=== PATIENT | male | born 1975 | race Caucasian/White ===

== ENCOUNTER 2022-09-09 12:36 | Outpatient (AMB) | payer OTHER, SELFPAY ==
--- NOTE | 2022-09-09 13:31 | MHC.PC.OV ---
Vital Signs 09/09/22 13:33 Height 6 ft Weight 246 lb BMI 33.4 BP 152/100 H Blood Pressure Location Lt brachial Position Sitting Pulse 105 H Pulse Source Pulse Oximeter Pulse Oximetry (%) 96 Oxygen Delivery Method Room Air Intake Visit Reasons: BP/Medications Intake Note: Pt is here today to f/u b/p medication (pt ran out of medication x2wks ago) Allergies penicillin V Allergy (Unknown, Verified 09/09/22 13:51) unknown Sulfa (Sulfonamide Antibiotics) Allergy (Unknown, Verified 09/09/22 13:51) unknown Medication List - Last Reconciled 09/09/22 by Rebecca Joya MD amlodipine 10 mg PO DAILY 90 days blood pressure monitor (Blood Pressure Kit) Check blood pressure once a day as directed lisinopril 10 mg PO DAILY Tobacco use date assessed: 09/09/22 Dental Screening Dental Screen Date: 09/09/22 Did you have a dental visit in the last 12 months?: No Was dental information given to patient?: Patient has dentist HPI BP/Medications HPI Details 39-year-old male with hypertension previously on amlodipine and lisinopril but ran out of his medications , here today needing a prescription refill. He has been treated for alcohol dependence, currently sober now for the approximately 6 days now. Currently resides in a alf near her [place]. He also has history of fracture in his right femoral neck sustained in October 2019, treated ortho in [place]. He is currently going to be leaving the and would like a referral to Orthopedics as he needspatient needs to have range of motion measurements of right leg and right shoulder, needed for medical group home- med board. [facility] Medical History (Updated 09/09/22 @ 14:12 by Rebecca Joya MD) Essential hypertension H/O fracture of femur History of alcohol abuse Obesity (BMI 30.0-34.9) Shoulder pain, right Surgical History (Updated 01/22/20 @ 12:28 by [place] Vidales, [employer]IST) History of skin graft Family History (Updated 09/09/22 @ 13:41 by Radha Elder CMA) Father Aneurysm Mother Chronic back pain Sister No problems noted. Sister No problems noted. Son No problems noted. Son No problems noted. Social History (Updated 01/23/20 @ 10:38 by Radha Elder CMA) Housing: House Alcohol intake: current Patient Tobacco Use Status: Former Tobacco user e-Cigarette/Vaping Use: Former Use service: No Current occupational status: employed Cognitive needs: No Hearing needs: No Vision needs: Yes Questionnaire PHQ-9 Over the last 2 weeks, how often have you been bothered by any of the following problems? 1. Little interest or pleasure in doing things: not at all 2. Feeling down, depressed, or hopeless: not at all 3. Trouble falling or staying asleep, or sleeping too much: not at all 4. Feeling tired or having little energy: not at all 5. Poor appetite or overeating: not at all 6. Feeling bad about yourself - or that you are a failure or have let yourself or your family down: not at all 7. Trouble concentrating on things, such as reading the newspaper or watching television: not at all 8. Moving or speaking so slowly that other people could have noticed. Or the opposite - being so fidgety or restless that you have been moving around a lot more than usual: not at all 9. Thoughts that you would be better off or of hurting yourself in some way: not at all Total score: 0 Depression Screening Interpretation: Negative 13103 - PHQ-9 Billing: Yes Source: Developed by Drs. Lake Thomas, Claudette Allen, Jamal Graf and colleagues, with an educational charleen from [employer]. Thrive Questionnaire Date Thrive assessed: 09/09/22 I am a: Patient What is your living situation today?: I have a steady place to live Within the past 12 months, did the food you bought not last and you didn't have the money to get more?: Never true Within the past 12 months, did you worry whether your food would run out before you got money to buy more?: Never true Do you have trouble paying for medicines?: No Do you have trouble getting transportation to medical appointments?: No Do you have trouble paying your heating and electricity bill?: No Do you have trouble taking care of your child, family member or friend?: No Do you have trouble with day-to-day activities such as bathing, preparing meals, shopping, managing finances, etc.?: No Are you currently unemployed and looking for a job?: No Are you interested in more education?: No AUDIT C Alcohol Use Questionnaire (AUDIT-C) 1. How often do you have a drink containing alcohol?: Never (Sober now for the last 66 days, history of alcohol abuse, used to drink 15 drinks a day mixture of whiskey and beer) Total Score: 0 Score Reviewed/Action Taken: Yes (Currently resides in a alf,, attends AA) PASQUALE-7 AMB Questionnaire PASQUALE-7 Date PASQUALE - 7 assessed: 09/09/22 Feeling nervous, anxious, or on edge: 0 = Not at all Not being able to stop or control worryin = Not at all Worrying too much about different things: 0 = Not at all Trouble relaxin = Not at all Being so restless that it is hard to sit still: 0 = Not at all Becoming easily annoyed or irritable: 0 = Not at all Feeling afraid as if something awful might happen: 0 = Not at all Total PASQUALE-7 score (0-4 normal; 5-9 mild; 10-14 moderate; 15-21 severe): 0 Source: Developed by Drs. Lake Thomas, Claudette Allen, Jamal Graf and colleagues, with an educational charleen from [employer]. PASQUALE-7 Assessment Billing PASQUALE-7 Assessment Tool: PASQUALE-7 Assessment 34524 Review of Systems Const Denies body aches, Denies fatigue, Denies fever(s), Denies headache(s), Denies weakness and Reports weight gain Eyes Denies change in vision, Denies eye discharge and Denies itchy eyes ENT Denies dizziness, Denies headache(s), Denies nasal congestion, Denies nasal discharge and Denies sore throat Card Denies chest pain, Denies lightheadedness, Denies palpitations and Denies dyspnea Resp Denies chest congestion, Denies cough, Denies dyspnea and Denies wheezing GI Denies abdominal pain, Denies change in bowel habits and Denies heartburn Denies dysuria, Denies urinary frequency and Denies urinary urgency Musc Denies back pain, Denies myalgias, Denies joint swelling, Denies limited range of motion, Denies muscle weakness and Denies numbness Skin/Breast Denies lesions and Denies rash Neuro Denies dizziness, Denies headache(s), Denies numbness and Denies weakness Psych Denies abnormal sleep pattern, Denies anxiety and Denies depression Endo Denies fatigue, Denies polydipsia, Denies polyuria and Denies palpitations Johnathan/Lymph Denies easy bruising Aller/Immun Denies itchy eyes, Denies seasonal rhinorrhea and Denies wheezing Physical exam (Primary Care) Vital Signs: Last Vital Signs Pulse 105 H 09/09/22 13:33 BP 152/100 H 09/09/22 13:33 Pulse Ox 96 09/09/22 13:33 Oxygen Delivery Method Room Air 09/09/22 13:33 BMI result Body Mass Index 33.4 BMI Assessment/Plan discussion: High BMI High, discussed plan: lifestyle, weight reduction, dietary, physical activity and alcohol moderation (Continue abstinence from alcohol) Tobacco/Smoking Status: Tobacco use Status Tobacco use date assessed 09/09/22 09/09/22 13:41 Patient Tobacco Use Status Former Tobacco user 09/09/22 13:41 e-Cigarette/Vaping Use Former Use 09/09/22 13:41 PHQ-9: PHQ-9 Score PHQ-9: Total score 0 09/09/22 14:41 Depression Screening Interpretation: Negative Thrive Assessment: Date of Thrive Assessment Date Thrive assessed 09/09/22 09/09/22 14:39 Const General: cooperative, comfortable and no acute distress Nutritional Appearance: obese Orientation/consciousness: patient oriented x3 HENMT Head: Yes normocephalic and Yes atraumatic Ears: hearing grossly normal bilaterally, external ears normal, TM's normal bilaterally and EAC's normal General nose exam: Normal external nose present and No nasal discharge present Face and sinus: Yes face symmetric Mouth: Normal oral and palatal mucosa present, tongue normal, oropharynx normal and moist mucous membranes Eyes General: appearance normal, both eyes and all related structures Alignment and Position: alignment normal Periorbital: periorbital findings normal Eyelids: Yes eyelids normal Conjunctivae: conjunctivae normal Sclerae: sclerae normal Pupils: Equal, round and reactive pupils present EOM: EOMs intact bilaterally Direct Ophthalmoscopy: normal light reflex Neck Neck: Yes full ROM, Yes no lymphadenopathy and Yes supple Thyroid: Thyroid normal Resp Effort & Inspection: normal respiratory effort and able to speak in complete sentences Auscultation: clear to auscultation bilaterally Cardio Palpation: normal PMI Rate: regular rate Rhythm: regular rhythm Heart sounds: S1 normal heart sound present and S2 normal heart sound present GI Inspection: Yes obesity Palpation (GI): Soft to palpation, nontender, no guarding and no masses Auscultation: normal bowel sounds General: Yes no CVA tenderness Back/Spine/Pelvis Back: no CVA tenderness and No back tenderness Cervical Spine: cervical ROM normal Thoracic/Lumbar Spine: straight leg raise negative bilaterally Skin General skin exam: no rashes or lesions noted Neuro General: patient oriented x3, moves all extremities, Normal light touch and pain sensation, no focal motor deficits and CN's II-XI intact bilaterally Cranial nerves: Yes CN's II-XII intact bilaterally and Yes Equal, round and reactive pupils present Cognition (Neuro): normal cognition Gait exam (Neuro): Normal gait present Psych Appearance: grossly normal and well kempt Mental Status: mental status grossly normal Speech and movement: Normal speech and movement present Affect: normal affect Attitude: cooperative Thought process: Normal thought process present Thought content: Normal thought content present Assessment and Plan Assessment & Plan (1) Essential hypertension: Code(s): I10 - Essential (primary) hypertension Plan: Blood pressure at goal of less than 130/80. Refill prescription for lisinopril and amlodipine. Reinforced importance of following a low sodium diet, getting regular exercise, and lowering stress levels. (2) Obesity (BMI 30.0-34.9): Code(s): E66.9 - Obesity, unspecified Plan: Discussed need to increase activity and wt reduction. Recommended focusing on improving your health instead of dieting. : Eat Mediterranean diet, limit foods high in fat, sugar, and calories, eat slowly, pay attention to portion sizes, plan your meals ahead of time, start regular physical activity 150 minutes of moderate intensity exercise or 90 minutes/week of vigorous exercise and increase water intake. (3) History of alcohol abuse: Comment: Currently in a alf in [place] Code(s): F10.11 - Alcohol abuse, in remission Plan: Currently in AA and residing in a alf, sober now for at least 2 months (4) H/O fracture of femur: Comment: mildly Rt vertical femoral neck fx 10/2019 Code(s): Z87.81 - Personal history of (healed) traumatic fracture Plan: Followed by Orthopedics (5) Shoulder pain, right: Code(s): M25.511 - Pain in right shoulder Plan: Seen by Orthopedics, referral ordered for follow-up Orders: Orders Lipid Panel 09/09/22 I10 - Essential (primary) hypertension Comprehensive Met. Panel 09/09/22 E66.9 - Obesity, unspecified, F10.11 - Alcohol abuse, in remission, I10 - Essential (primary) hypertension Referrals Orthopedics Referral M25.511 - Pain in right shoulder, Z87.81 - Personal history of (healed) traumatic fracture Medications: Refilled amlodipine 10 mg PO DAILY 90 days 90 tabs 1RF I10 - Essential (primary) hypertension lisinopril 10 mg PO DAILY 90 tabs 1RF I10 - Essential (primary) hypertension Coding Level of Care Code Est Pt Level 4 (62050) Diagnoses Essential hypertension I10 Obesity (BMI 30.0-34.9) E66.9 History of alcohol abuse F10.11 H/O fracture of femur Z87.81 Shoulder pain, right M25.511 Additional Codes PASQUALE-7 Assessment Billing - PASQUALE-7 Assessment Tool: PASQUALE-7 Assessment 46859 ([id number])
[2022-09-09 13:33] VITALS: BP 152/100; PULSE 105; O2SAT 96; BMI 33.4
== END 2022-09-09 14:19 | disposition home or self-care (01) ==
PROVIDERS: PCP Internal Medicine; Visit Provider Internal Medicine
DX: I10 Essential (primary) hypertension (principal); Z87.81 Personal history of (healed) traumatic fracture; Z68.33 Body mass index [BMI] 33.0-33.9, adult; E66.9 Obesity, unspecified; F10.11 Alcohol abuse, in remission; M25.511 Pain in right shoulder
CPT/HCPCS: 99214

== ENCOUNTER 2022-09-09 14:19 | Outpatient (REF) | payer OTHER, SELFPAY ==
[2022-09-09 17:49] LABS: Alanine Aminotransferase 21 U/L (0-40); Albumin Level 4.4 g/dL (3.5-5.0); Alkaline Phosphatase 75 U/L (39-117); Anion Gap 15 (12-20); Aspartate Amino Transferase 25 U/L (5-37); Bilirubin Total 1.2 mg/dL (0.0-1.0); Blood Urea Nitrogen 12 mg/dL (9-16); Carbon Dioxide 19 mmol/L (22-29); Chloride 109 mmol/L (96-108); Cholesterol 193 mg/dL; Estimated Glomerular Filt Rate > 60; Glucose Random 99 mg/dL (60-115); HDL Cholesterol 54 mg/dL; LDL Cholesterol Calculated 114 mg/dl; Potassium 4.1 mmol/L (3.3-5.1); Sodium 139 mmol/L (135-145); Total Protein 7.6 g/dL (6.5-8.0); Triglycerides 128 mg/dL
== END 2022-09-09 14:20 | disposition home or self-care (01) ==
LOC: HO.HMGCLDS 14:19
PROVIDERS: PCP Internal Medicine; Visit Provider Internal Medicine
DX: I10 Essential (primary) hypertension (principal); E66.9 Obesity, unspecified; F10.11 Alcohol abuse, in remission
CPT/HCPCS: 36415; 80053; 80061

== ENCOUNTER 2024-05-11 13:28 | Outpatient (AMB) | payer OTHER, SELFPAY ==
--- NOTE | 2024-05-11 14:39 | MHC.PC.OV ---
Vital Signs 05/11/24 14:43 Height 6 ft Weight 264 lb BMI 35.8 BP 136/88 Blood Pressure Location Rt brachial Position Sitting Respiration 16 Pulse 83 Pulse Source Pulse Oximeter Temp 98.2 F Temp Source Oral Pulse Oximetry (%) 97 Oxygen Delivery Method Room Air Intake Visit Reasons: Annual PE/OVERDUE/needs refill~BP meds/DO NOT CX Intake Note: Pt is here today for his PE Allergies penicillin V Allergy (Unknown, Verified 05/11/24 15:12) unknown Sulfa (Sulfonamide Antibiotics) Allergy (Unknown, Verified 05/11/24 15:12) unknown Medication List - Last Reconciled 05/11/24 by Rebecca Joya MD amlodipine 10 mg PO DAILY 90 days blood pressure monitor (Blood Pressure Kit) Check blood pressure once a day as directed lisinopril 10 mg PO DAILY Tobacco use date assessed: 05/11/24 Dental Screening Dental Screen Date: 05/11/24 HPI Annual PE/OVERDUE/needs refill~BP meds/DO NOT CX HPI Details 48-year-old male with history of hypertension, obesity, history of alcoholism, now sober for 2 years , here today for physical exam. He has been compliant with taking his medications , compliant with healthy eating habits. He walks daily for exercise. His blood pressure has been stable and well controlled on present medication, but there are times that it still goes up to 130/100. He also has been having hard time losing weight despite exercising and following a healthy diet, would like to try losing weight with either Ozempic or Wegovy. He is overdue for colon cancer screening. He also has been having difficulty with maintaining penile erections during intercourse, does still have morning erections.. Denies any opiate use [facility] Medical History (Updated 05/11/24 @ 17:31 by Rebecca Joya MD) Erectile dysfunction Shoulder pain, right History of alcohol abuse Obesity (BMI 30.0-34.9) Essential hypertension H/O fracture of femur Surgical History History of skin graft Family History Father Aneurysm Mother Chronic back pain Sister No problems noted. Sister No problems noted. Son No problems noted. Son No problems noted. Social History Housing: House Alcohol intake: current Patient Tobacco Use Status: Former Tobacco user e-Cigarette/Vaping Use: Former Use service: No Current occupational status: employed Cognitive needs: No Hearing needs: No Vision needs: Yes Questionnaire PHQ-9 Over the last 2 weeks, how often have you been bothered by any of the following problems? 1. Little interest or pleasure in doing things: not at all 2. Feeling down, depressed, or hopeless: not at all 3. Trouble falling or staying asleep, or sleeping too much: not at all 4. Feeling tired or having little energy: not at all 5. Poor appetite or overeating: not at all 6. Feeling bad about yourself - or that you are a failure or have let yourself or your family down: not at all 7. Trouble concentrating on things, such as reading the newspaper or watching television: not at all 8. Moving or speaking so slowly that other people could have noticed. Or the opposite - being so fidgety or restless that you have been moving around a lot more than usual: not at all 9. Thoughts that you would be better off or of hurting yourself in some way: not at all Total score: 0 Depression Screening Interpretation: Negative Depression Screening Done: Yes [id number] - PHQ-9 Billing: Yes Source: Developed by Drs. Lake Thomas, Claudette Allen, Jamal Graf and colleagues, with an educational charleen from [employer]. Thrive Questionnaire Date Thrive assessed: 05/11/24 I am a: Patient What is your living situation today?: I have a steady place to live Within the past 12 months, did the food you bought not last and you didn't have the money to get more?: Never true Within the past 12 months, did you worry whether your food would run out before you got money to buy more?: Never true Do you have trouble paying for medicines?: No Do you have trouble getting transportation to medical appointments?: No Do you have trouble paying your heating and electricity bill?: No Do you have trouble taking care of your child, family member or friend?: No Do you have trouble with day-to-day activities such as bathing, preparing meals, shopping, managing finances, etc.?: No Are you currently unemployed and looking for a job?: No Are you interested in more education?: No Please select the resources that you would like help with: None Currently or been in a relationship where the following occur: No concerns reported THRIVE Score: 0 AUDIT C Alcohol Use Questionnaire (AUDIT-C) 1. How often do you have a drink containing alcohol?: Never 3. How often do you have six or more drinks on one occasion?: Never Total Score: 0 PASQUALE-7 AMB Questionnaire PASQUALE-7 Date PASQUALE - 7 assessed: 05/11/24 Feeling nervous, anxious, or on edge: 0 = Not at all Not being able to stop or control worryin = Not at all Worrying too much about different things: 0 = Not at all Trouble relaxin = Not at all Being so restless that it is hard to sit still: 0 = Not at all Becoming easily annoyed or irritable: 0 = Not at all Feeling afraid as if something awful might happen: 0 = Not at all Total PASQUALE-7 score (0-4 normal; 5-9 mild; 10-14 moderate; 15-21 severe): 0 Source: Developed by Drs. Lake Thomas, Claudette Allen, Jamal Graf and colleagues, with an educational charleen from [employer]. PASQUALE-7 Assessment Billing PASQUALE-7 Assessment Tool: PASQUALE-7 Assessment 41423 Review of Systems Const Denies body aches, Denies fatigue, Denies fever(s), Denies headache(s), Denies weakness and Reports weight gain Eyes Denies change in vision ENT Denies dizziness, Denies headache(s), Denies nasal congestion and Denies nasal discharge Card Denies chest pain, Denies lightheadedness, Denies palpitations and Denies dyspnea Resp Denies chest congestion, Denies cough, Denies dyspnea and Denies wheezing GI Denies abdominal pain, Denies change in bowel habits and Denies heartburn Denies dysuria, Denies urinary frequency and Denies urinary urgency Musc Denies back pain, Denies myalgias, Denies joint swelling, Denies limited range of motion, Denies muscle weakness and Denies numbness Skin/Breast Denies lesions and Denies rash Neuro Denies dizziness, Denies headache(s), Denies numbness and Denies weakness Psych Denies abnormal sleep pattern, Denies anxiety and Denies depression Endo Denies fatigue, Denies polydipsia, Denies polyuria and Denies palpitations Johnathan/Lymph Denies easy bruising Aller/Immun Denies seasonal rhinorrhea and Denies wheezing Physical exam (Primary Care) Vital Signs: Last Vital Signs Temp 98.2 F 05/11/24 14:43 Pulse 83 05/11/24 14:43 Resp 16 05/11/24 14:43 BP 136/88 05/11/24 14:43 Pulse Ox 97 05/11/24 14:43 Oxygen Delivery Method Room Air 05/11/24 14:43 BMI result Body Mass Index 35.8 Tobacco/Smoking Status: Tobacco use Status Tobacco use date assessed 05/11/24 05/11/24 14:46 Patient Tobacco Use Status Former Tobacco user 05/11/24 14:46 e-Cigarette/Vaping Use Former Use 05/11/24 14:46 PHQ-9: PHQ-9 Score PHQ-9: Total score 0 05/11/24 15:16 Depression Screening Interpretation: Negative Thrive Assessment: Date of Thrive Assessment Date Thrive assessed 05/11/24 05/11/24 14:46 Currently or been in a relationship where the following occur: No concerns reported Advance Care Planning discussion: Completed/Scanned Date of discussion: 05/11/24 Who was present: Patient Forms completed: Health Care Proxy Time spent: 16-45 minutes Actual minutes spent: 3 Const General: no acute distress and alert Orientation/consciousness: patient oriented x3 HENMT Head: Yes normocephalic Ears: external ears normal, TM's normal bilaterally and EAC's normal General nose exam: Normal external nose present Face and sinus: Yes face symmetric Mouth: Normal oral and palatal mucosa present, tongue normal and moist mucous membranes Eyes General: appearance normal, both eyes and all related structures Eyelids: Yes eyelids normal Conjunctivae: conjunctivae normal Sclerae: sclerae normal Pupils: Equal, round and reactive pupils present EOM: EOMs intact bilaterally Neck Neck: Yes full ROM, Yes no lymphadenopathy and Yes supple Thyroid: Thyroid normal Chest Chest palpation & inspection: normal inspection of the chest Resp Effort & Inspection: normal respiratory effort and able to speak in complete sentences Auscultation: clear to auscultation bilaterally Cardio Rate: regular rate Rhythm: regular rhythm Heart sounds: S1 normal heart sound present and S2 normal heart sound present GI Palpation (GI): Soft to palpation, nontender, no guarding and no masses Auscultation: normal bowel sounds General: Yes no CVA tenderness Back/Spine/Pelvis Back: no CVA tenderness and No back tenderness Skin General skin exam: no rashes or lesions noted Neuro General: patient oriented x3, gait normal, moves all extremities, no focal motor deficits and CN's II-XI intact bilaterally Cranial nerves: Yes Equal, round and reactive pupils present Cognition (Neuro): normal cognition Gait exam (Neuro): Normal gait present Motor exam (neuro): 5/5 motor strength present throughout Extrem General: Yes normal to inspection, Yes full ROM, Yes no joint enlargement, Yes no pedal edema and Yes normal gait Psych Appearance: grossly normal and well kempt Mental Status: mental status grossly normal Speech and movement: Normal speech and movement present Affect: normal affect Attitude: cooperative Thought process: Normal thought process present Thought content: Normal thought content present Coding Level of Care Code Est Pt Prev Care 40-64y(19363) Diagnoses Encounter for screening for malignant neoplasm of colon Z12.11 Essential hypertension I10 Annual visit for general adult medical examination with abnormal findings Z00.01 Obesity (BMI 30.0-34.9) E66.9 Erectile dysfunction, unspecified erectile dysfunction type N52.9 Erectile dysfunction type: unspecified Additional Codes PHQ-9 - 67274 - PHQ-9 Billing: Yes ([id number]) PASQUALE-7 Assessment Billing - PASQUALE-7 Assessment Tool: PASQUALE-7 Assessment [id number] ([id number]) Vital Signs *Quality* - Advance Care Planning discussion: Completed/Scanned ([id number]) Vital Signs *Quality* - Time spent: 16-45 minutes ([id number]) Assessment & Plan Assessment & Plan (1) Encounter for screening for malignant neoplasm of colon: Code(s): Z12.11 - Encounter for screening for malignant neoplasm of colon Plan: Referred to Dr. Olson for his initial colon cancer screening (2) Essential hypertension: Code(s): I10 - Essential (primary) hypertension Category: Medical Plan: Blood pressure not at goal of less than 130/80. Continue with amlodipine 10 mg to take at bedtime, and changed list to lisinopril-HCTZ 10-12.5 mg per tablet to take once a day in a.m., 3 Reinforced importance of following a low sodium diet, getting regular exercise, and lowering stress levels. See him back for follow-up in August 2024 (3) Annual visit for general adult medical examination with abnormal findings: Code(s): Z00.01 - Encounter for general adult medical examination with abnormal findings Category: Medical Plan: Will check appropriate labs. Continue regular dental visit every 6 months and regular eye exams, at least every 2 years. Take adequate calcium in diet and vitamin-D 3 at 2000 IU per cap once a day, in addition to weight-bearing exercises to help maintain good muscle tone and weight control. Instructed to do self-testicular exam check for any mass. Reminded to get yearly flu shots, received pneumococcal vaccination, up-to-date with Tdap (4) Obesity (BMI 30.0-34.9): Code(s): E66.9 - Obesity, unspecified Category: Medical Plan: Patient with obesity as well as hypertension, will start on Ozempic 0.25 mg injected subcu once a week. Discuss proper technique of giving himself with the medication and possible side effects that may occur advised to eat a bland diet when up-to-date at his giving himself his injection. Report any unusual abdominal pain especially if accompanied by nausea Chase this fever. Will see him back for follow-up in August 2024 (5) Erectile dysfunction: Code(s): N52.9 - Male erectile dysfunction, unspecified Category: Medical Qualifiers: Erectile dysfunction type: unspecified Qualified Code(s): N52.9 - Male erectile dysfunction, unspecified Plan: Will check testosterone level Orders: Orders Basic Metabolic Panel Fasting Today E66.9 - Obesity, unspecified, I10 - Essential (primary) hypertension, N52.9 - Male erectile dysfunction, unspecified, Z00.01 - Encounter for general adult medical examination with abnormal findings, Z13.1 - Encounter for screening for diabetes mellitus, Z13.220 - Encounter for screening for lipoid disorders Aspartate Amino Transferase Today E66.9 - Obesity, unspecified, I10 - Essential (primary) hypertension, N52.9 - Male erectile dysfunction, unspecified, Z00.01 - Encounter for general adult medical examination with abnormal findings, Z13.1 - Encounter for screening for diabetes mellitus, Z13.220 - Encounter for screening for lipoid disorders Alanine Aminotransferase Today E66.9 - Obesity, unspecified, I10 - Essential (primary) hypertension, N52.9 - Male erectile dysfunction, unspecified, Z00.01 - Encounter for general adult medical examination with abnormal findings, Z13.1 - Encounter for screening for diabetes mellitus, Z13.220 - Encounter for screening for lipoid disorders TSH reflex Free T4 Today E66.9 - Obesity, unspecified, N52.9 - Male erectile dysfunction, unspecified Testosterone, Free/Total Today E66.9 - Obesity, unspecified, N52.9 - Male erectile dysfunction, unspecified Complete Blood Count Auto Diff Today E66.9 - Obesity, unspecified, I10 - Essential (primary) hypertension, N52.9 - Male erectile dysfunction, unspecified, Z00.01 - Encounter for general adult medical examination with abnormal findings, Z13.1 - Encounter for screening for diabetes mellitus, Z13.220 - Encounter for screening for lipoid disorders Lipid Panel Today E66.9 - Obesity, unspecified, I10 - Essential (primary) hypertension, N52.9 - Male erectile dysfunction, unspecified, Z00.01 - Encounter for general adult medical examination with abnormal findings, Z13.1 - Encounter for screening for diabetes mellitus, Z13.220 - Encounter for screening for lipoid disorders Vitamin D 25-OH Total Today E66.9 - Obesity, unspecified, I10 - Essential (primary) hypertension, N52.9 - Male erectile dysfunction, unspecified, Z00.01 - Encounter for general adult medical examination with abnormal findings, Z13.1 - Encounter for screening for diabetes mellitus, Z13.220 - Encounter for screening for lipoid disorders Referrals Gastroenterology Referral Z12.11 - Encounter for screening for malignant neoplasm of colon Medications: New semaglutide (Ozempic) for 4 weeks 0.25 mg (0.368 mL) subcut QWEEK 30 days 3 mL 4RF E66.9 - Obesity, unspecified, I10 - Essential (primary) hypertension lisinopril-hydrochlorothiazide 10-12.5 mg 1 tab PO DAILY 90 tabs 2RF Refilled amlodipine 10 mg PO DAILY 90 days 90 tabs 3RF I10 - Essential (primary) hypertension Discontinued lisinopril Discontinued Reason: Doctor's Order 10 mg PO DAILY 90 tabs 0RF I10 - Essential (primary) hypertension
[2024-05-11 14:43] VITALS: BP 136/88; PULSE 83; RESP 16; TEMP 36.8; O2SAT 97; BMI 35.8
--- OUTSIDE RECORDS SUMMARY | 2024-05-11 16:47 | XMS_ITS | Continuity of Care Document ---
Author Name [facility] Organization [facility] Care Team Providers Care Shipwright Apprentice Name Role Phone [facility] Unavailable Unavailable Problems Combined list of problems from Department of Defense and Veterans Affairs facilities. It does not include entries that were removed or entered in error. Problem Status Onset Date Problem Type Date of Resolution Comments Source Severe alcohol dependence Active Condition [facility] [place] [facility] Tobacco dependence, episodic Active Condition [facility] [place] [facility] Medications Combined list of outpatient medications from Department of Defense and Veterans Affairs facilities.Medications provided include 1) outpatient medications from the last 15 months, and 2) patient-reported medications. Medication Details Route Status Patient Instructions Prescription Expires Prescription Number Last Dispense Date Ordering Provider Order Date Order Qty Source lisinopril 10 mg oral tablet lisinopr il 10 mg oral tablet Start Date: 04/26/20 Status: Ordered Repeat number: 1 Ordered 2021 No Facilit y Access oxyCODONE 5 mg oral tablet oxyCODON E 5 mg oral tablet Start Date: 12/14/20 Status: Ordered Repeat number: 1 Ordered 2021 No Facilit y Access Immunizations Combined list of available immunizations from the Department of Defense and Veterans Affairs facilities. Immunization Series Date Given Administered By Site Reaction Lot Number CVX Code Drug Clinic Physician Director Status Comments Source COVID Vaccine Moderna 2020 TRS 207 complet ed COVID Vaccine Moderna 02/04/21 Given Ambulat ory Pharmac y COVID-19 (MODERNA), MRNA, LNP-S, PF, 100 MCG/0.5ML DOSE OR 50 MCG/0.25ML DOSE 3 2020 207 complet ed JLV Lot#: [id number] Mfr: MODERNA US, INC. [place] [facility] [place] [facility] [facility] influenza, injectable, quadrivalent 2020 [id number] GlaxWorld Sports Network[employer] ne complet ed influenza , injectabl e, quadrival ent 11/30/20 Given Ambulat ory Pharmac y COVID Vaccine Moderna 2020 [id number] 207 complet ed COVID Vaccine Moderna 04/23/20 Given Ambulat ory Pharmac y COVID-19 (MODERNA), MRNA, LNP-S, PF, 100 MCG/0.5ML DOSE OR 50 MCG/0.25ML DOSE 2 2020 207 complet ed JLV Lot#: [id number] Mfr: MODERNA [employer] [facility] COVID Vaccine Moderna 2020 [id number] 207 complet ed COVID Vaccine Moderna 03/27/20 Given Ambulat ory Pharmac y COVID-19 (MODERNA), MRNA, LNP-S, PF, 100 MCG/0.5ML DOSE OR 50 MCG/0.25ML DOSE 1 2020 207 complet ed JLV Lot#: [id number] Mfr: [employer]ix Sem[employer] [facility] influenza, injectable, quadrivalent- pf 2019 [id number] 150 Seqirus complet ed influenza , injectabl e, quadrival ent-pf 11/09/19 Given Ambulat ory Pharmac y influenza, injectable, quadrivalent- pf 2018 [id number] 150 Seqirus complet ed influenza , injectabl e, quadrival ent-pf 11/15/18 Given Ambulat ory Pharmac y influenza, injectable, quadrivalent 2017 [id number] Seqirus complet ed influenza , injectabl e, quadrival ent 12/08/17 Given Ambulat ory Pharmac y Influenza, inj, MDCK, quadrivalent- pf 2016 [id number] 171 Seqirus complet ed Influenza , inj, MDCK, quadrival ent-pf 12/20/16 Given Ambulat ory Pharmac y influenza, seasonal, injectable-pf 2015 [id number] 140 GlaxoSmithKli ia complet ed influenza , seasonal, injectabl e-pf 11/30/15 Given Ambulat ory Pharmac y influenza, live, intranasal,qu adrivalent 2014 [id number] InsideView Inc comple t ed influenza , live, intranasa l,quadriv alent 01/02/15 Given Ambulat ory Pharmac y hepatitis B adult vaccine 2013 [id number] Merck & Company Inc complet ed hepatitis B adult vaccine 01/20/14 Given Ambulat ory Pharmac y HEP B, ADULT 1 2013 43 complet ed JLV Lot#: [id number] Mfr: MERCK AND CO., INC. [place] [facility] [place] [facility] influenza, seasonal, injectable 2013 [id number] ID [employer]ical comple t ed influenza , seasonal, injectabl e 11/18/13 Given Ambulat ory Pharmac y hepatitis B adult vaccine 2013 [id number] Merck & Company Inc complet ed hepatitis B adult vaccine 07/21/13 Given Ambulat ory Pharmac y hepatitis B adult vaccine 2013 [id number] SabrTechK[employer] ne complet ed hepatitis B adult vaccine 05/20/13 Given Ambulat ory Pharmac y influenza, seasonal, injectable 2012 [id number] 141 Novartis Pharmaceutica ls complet ed influenza , seasonal, injectabl e 09/09/12 Given Ambulat ory Pharmac y influenza, seasonal, injectable 2011 [id number] 141 CSL Behring complet ed influenza , seasonal, injectabl e 11/28/11 Given Ambulat ory Pharmac y tetanus, diphtheria, acellular pertu is 2011 [id number] 115 sanofi pasteur complet ed tetanus, diphtheri a, acellular pertussis 09/26/11 Given Ambulat ory Pharmac y influenza, seasonal, injectable 2010 [id number] 141 sanofi pasteur complet ed influenza , seasonal, injectabl e 01/17/11 Given Ambulat ory Pharmac y influenza virus vaccine,split 2009 [id number] 15 sanofi pasteur complet ed influenza virus vaccine,s plit 01/18/10 Given Ambulat ory Pharmac y influenza virus vaccine, live 2008 [id number] 111 InsideView Inc comple t ed influenza virus vaccine, live 12/23/08 Given Ambulat ory Pharmac y influenza virus vaccine, live 2007 [id number] 111 MediRewardSnapune Inc comple t ed influenza virus vaccine, live 11/20/07 Given Ambulat ory Pharmac y influenza virus vaccine, live 2006 [id number] 111 Medie(ye)BRAIN Inc comple t ed influenza virus vaccine, live 01/15/07 Given Ambulat ory Pharmac y influenza virus vaccine,split 2005 [id number] 15 sanofi pasteur complet ed influenza virus vaccine,s plit 01/02/06 Given Ambulat ory Pharmac y influenza virus vaccine,split 2004 [id number] 15 sanofi pasteur complet ed influenza virus vaccine,s plit 01/16/05 Given Ambulat ory Pharmac y tuberculin purified protein derivative 2002 [id number] 96 sanofi pasteur complet ed tuberculi n purified protein derivativ e 11/07/02 Given Ambulat ory Pharmac y influenza virus vaccine, whole virus 2002 [id number] 16 [employer] complet ed influenza virus vaccine, whole virus 11/07/02 Given Ambulat ory Pharmac y typhoid Vi capsular polysaccharid e vac 2002 [id number] sanofi pasteur complet ed typhoid Vi capsular polysacch aride vac 10/28/02 Given Ambulat ory Pharmac y tetanus-dipht h toxoids (Td) adult/adol 2002 [id number] 09 sanofi pasteur complet ed tetanus-d iphth toxoids (Td) adult/ado l 10/28/02 Given Ambulat ory Pharmac y tuberculin purified protein derivative 2001 [id number] 96 sanofi pasteur complet ed tuberculi n purified protein derivativ e 12/08/01 Given Ambulat ory Pharmac y influenza virus vaccine, whole virus 2001 [id number] 16 sanofi pasteur complet ed influenza virus vaccine, whole virus 12/08/01 Given Ambulat ory Pharmac y tuberculin purified protein derivative 2000 [id number] 96 sanofi pasteur complet ed tuberculi n purified protein derivativ e 12/17/00 Given Ambulat ory Pharmac y influenza virus vaccine, whole virus 2000 [id number] 16 sanofi pasteur complet ed influenza virus vaccine, whole virus 12/17/00 Given Ambulat ory Pharmac y typhoid vaccine, parenteral 2000 [id number] 41 sanofi pasteur complet ed typhoid vaccine, parentera l 10/23/00 Given Ambulat ory Pharmac y tuberculin purified protein derivative 2000 [id number] 96 sanofi pasteur complet ed tuberculi n purified protein derivativ e 10/10/00 Given Ambulat ory Pharmac y measles/mumps /rubella virus vaccine 2000 [id number] Merck & Company Inc complet ed measles/m umps/rube lla virus vaccine 10/10/00 Given Ambulat ory Pharmac y influenza virus vaccine, whole virus 2000 [id number] 16 [facility] complet ed influenza virus vaccine, whole virus 03/20/00 Given Ambulat ory Pharmac y influenza virus vaccine, whole virus 1998 [id number] 16 sanofi pasteur complet ed influenza virus vaccine, whole virus 12/17/98 Given Ambulat ory Pharmac y tuberculin purified protein derivative 1998 [id number] 96 [facility] complet ed tuberculi n purified protein derivativ e 12/02/98 Given Ambulat ory Pharmac y influenza virus vaccine, whole virus [id number] 16 [facility] complet ed influenza virus vaccine, whole virus 11/22/97 Given Ambulat ory Pharmac y influenza virus vaccine, whole virus [id number] 16 PFIZER complet ed influenza virus vaccine, whole virus 12/11/96 Given Ambulat ory Pharmac y tuberculin purified protein derivative 1996 96 complet ed tuberculi n purified protein derivativ e 08/04/96 Given Ambulat ory Pharmac y hepatitis A adult vaccine [id number] 52 PFIZER complet ed hepatitis A adult vaccine 07/31/96 Given Ambulat ory Pharmac y meningococcal polysaccharid e (MPSV4) 19962069 [id number] 32 PFIZER complet ed meningoco ccal polysacch aride (MPSV4) 07/31/96 Given Ambulat ory Pharmac y influenza virus vaccine, whole virus 1995 16 complet ed influenza virus vaccine, whole virus 12/16/95 Given Ambulat ory Pharmac y yellow fever vaccine [id number] 37 PFIZER complet ed yellow fever vaccine 09/29/95 Given Ambulat ory Pharmac y hepatitis A adult vaccine [id number] 1345925 52 PFIZER complet ed hepatitis A adult vaccine 09/21/95 Given Ambulat ory Pharmac y typhoid vaccine, live, oral 19950259 [id number] 25 PFIZER complet ed typhoid vaccine, live, oral 09/21/95 Given Ambulat ory Pharmac y poliovirus vaccine, live, oral 1992 02 complet ed polioviru s vaccine, live, oral 08/20/92 Given Ambulat ory Pharmac y tetanus-dipht h toxoids (Td) adult/adol 1992 09 complet ed tetanus-d iphth toxoids (Td) adult/ado l 08/20/92 Given Ambulat ory Pharmac y poliovirus vaccine, live, oral 1992 02 complet ed polioviru s vaccine, live, oral 08/15/92 Given Ambulat ory Pharmac y measles/mumps /rubella virus vaccine 1992 03 complet ed measles/m umps/rube lla virus vaccine 08/15/92 Given Ambulat ory Pharmac y Procedures Combined list of: 1) Procedures from Department of Veterans Affairs facilities going back up to thelast 18 months, not all [place] non-surgical procedures are included; 2) All procedures from the Department of [facility] facilities. Procedure Procedure Type Code Date Perfomer Comments Sourc e No data available for this section Ambulatory P harmacy Social History Combined list of available smoking, tobacco, and other social history from Department of Defense and Veterans Affairs facilities. Social History Type Response Date Comment Sourc e Tobacco smoking status NHIS VA-TOBACCO USER SOME DAYS 09/04/2021 [place] [facility] [place] [facility] History of tobacco use VA-TOBACCO DOESNT USE WI 30 MIN WAKEUP 09/04/2021 [place] [facility] [place] [facility] Assessment and Plan Combined list of future care activities from Department of Defense and Veterans Affairs facilities (e.g., assessment and plan notes, appointments, orders, and referrals). Additional future care activities may be listed in the Plan of Care section. Result Assessment and Plan Date Source Assessment and Plan No data available for this section 05/11/2024 Ambulatory Pharmacy Functional Status Combined list of recent functional and cognitive assessments recorded at Department of Defense and Veterans Affairs ([place]).VA Functional [place] Measurement (FIM) Scale: 1 = Total Assistance (Subject = 0% +), 2 = Maximal Assistance (Subject = 25% +), 3 = Moderate Assistance (Subject = 50% +), 4 = Minimal Assistance (Subject = 75% +), 5 = Supervision, 6 = Modified [place] (Device), 7 = Complete [place] (Timely, Safely). Assessment Date/Time Source Assessment Type Assessment Skill Assessment Score Assessment Details No data available for this section
== END 2024-05-11 15:51 | disposition home or self-care (01) ==
LOC: HO.HMCC 13:29
PROVIDERS: PCP Internal Medicine; Visit Provider Internal Medicine
DX: Z12.11 Encounter for screening for malignant neoplasm of colon (principal); I10 Essential (primary) hypertension; Z00.01 Encounter for general adult medical examination with abnormal findings; E66.9 Obesity, unspecified; N52.9 Male erectile dysfunction, unspecified; Z68.35 Body mass index [BMI] 35.0-35.9, adult

== ENCOUNTER → 2024-05-11 13:28 | Outpatient (BNVA) | payer OTHER, SELFPAY | PROVIDERS: PCP Internal Medicine; Visit Provider Internal Medicine | DX: Z00.01 Encounter for general adult medical examination with abnormal findings (principal); I10 Essential (primary) hypertension; E66.9 Obesity, unspecified; N52.9 Male erectile dysfunction, unspecified; Z68.35 Body mass index [BMI] 35.0-35.9, adult | CPT/HCPCS: 96127; 99497 ==

== ENCOUNTER 2024-05-17 06:01 | Outpatient (REF) | payer OTHER, SELFPAY ==
--- OUTSIDE RECORDS SUMMARY | 2024-05-17 06:03 | XMS_ITS | Continuity of Care Document ---
Author Name [facility] Organization [facility] Care Team Providers Care Executive Services Administrator Name Role Phone [facility] Unavailable Unavailable Problems Combined list of problems from Department of Defense and Veterans Affairs facilities. It does not include entries that were removed or entered in error. Problem Status Onset Date Problem Type Date of Resolution Comments Source Severe alcohol dependence Active Condition [facility] [place] [facility] Tobacco dependence, episodic Active Condition [facility] Medications Combined list of outpatient medications [...] Site Reaction Lot Number CVX Code Drug Investigator Status Comments Source COVID Vaccine Moderna 2020 TRS 207 complet ed COVID Vaccine Moderna 02/04/21 Given Ambulat ory Pharmac y COVID-19 (MODERNA), MRNA, LNP-S, PF, 100 MCG/0.5ML DOSE OR 50 MCG/0.25ML DOSE 3 2020 207 complet ed JLV Lot#: [id number] Mfr: MODERNA US, INC. [facility] [place] [facility] influenza, injectable, quadrivalent 2020 [id number] GlaxTroopSwapKl ne complet ed influenza , injectabl e, quadrival ent 11/30/20 Given Ambulat ory Pharmac y COVID Vaccine Moderna 03/09/ 2021 [id number] 207 complet ed COVID Vaccine Moderna 04/23/20 Given Ambulat ory Pharmac y COVID-19 (MODERNA), MRNA, LNP-S, PF, 100 MCG/0.5ML DOSE OR 50 MCG/0.25ML DOSE 2 2020 207 complet ed JLV Lot#: [id number] Mfr: MODERNA [employer] [facility] COVID Vaccine Moderna 2020 [id number] 207 complet ed COVID Vaccine Moderna 03/27/20 Given Ambulat ory Pharmac y COVID-19 (MODERNA), MRNA, LNP-S, PF, 100 MCG/0.5ML DOSE OR 50 MCG/0.25ML DOSE 1 2020 207 complet ed JLV Lot#: [id number] Mfr: MODERNA [employer] INC[employer] [facility] influenza, injectable, quadrivalent- pf 2019 [id number] 150 Seqirus complet ed influenza , injectabl e, quadrival ent-pf 11/09/19 Given Ambulat ory Pharmac y influenza, injectable, quadrivalent- pf 2018 [id number] 150 Seqirus complet ed influenza , injectabl e, quadrival ent-pf 11/15/18 Given Ambulat ory Pharmac y influenza, injectable, quadrivalent 2017 [id number] 158 Seqirus complet ed influenza , injectabl e, quadrival ent 12/08/17 Given Ambulat ory Pharmac y Influenza, inj, MDCK, quadrivalent- pf 2016 [id number] 171 Seqirus complet ed Influenza , inj, MDCK, quadrival ent-pf 12/20/16 Given Ambulat ory Pharmac y influenza, seasonal, injectable-pf 2015 [id number] 140 GlaxoSmRivanna MedicalKli va complet ed influenza , seasonal, injectabl e-pf 11/30/15 Given Ambulat ory Pharmac y influenza, live, intranasal,qu adrivalent 2014 [id number] 149 Lazy Angel Inc comple t ed influenza , live, intranasa l,quadriv alent 01/02/15 Given Ambulat ory Pharmac y hepatitis B adult vaccine 2013 [id number] 43 Merck & Company Inc complet ed hepatitis B adult vaccine 01/20/14 Given Ambulat ory Pharmac y HEP B, ADULT 1 2013 43 complet ed JLV Lot#: [id number] Mfr: MERCK AND CO., INC. [facility], seasonal, injectable 2013 [id number] ID Biomedical comple t ed influenza , seasonal, injectabl e 11/18/13 Given Ambulat ory Pharmac y hepatitis B adult vaccine 2013 [id number] 43 Merck & Company Inc complet ed hepatitis B adult vaccine 07/21/13 Given Ambulat ory Pharmac y hepatitis B adult vaccine 2013 [id number] [employer] ne complet ed hepatitis B adult vaccine 05/20/13 Given Ambulat ory Pharmac y influenza, seasonal, injectable 2012 [id number] 141 [employer] ls complet ed influenza , seasonal, injectabl e 09/09/12 Given Ambulat ory Pharmac y influenza, seasonal, injectable 2011 [id number] 141 CSL Behring complet ed influenza , seasonal, injectabl e 11/28/11 Given Ambulat ory Pharmac y tetanus, diphtheria, acellular pertu is 2011 [id number] 115 sanofi pasteur complet ed tetanus, diphtheri a, acellular pertussis 09/26/11 Given Ambulat ory Pharmac y influenza, seasonal, injectable 2010 [id number] 141 sanofi pasteur complet ed influenza , seasonal, injectabl e 01/17/11 Given Ambulat ory Pharmac y influenza virus vaccine,split 2009 [id number] 15 sanofi pasteur complet ed influenza virus vaccine,s plit 01/18/10 Given Ambulat ory Pharmac y influenza virus vaccine, live 2008 [id number] 111 Lazy Angel Inc comple t ed influenza virus vaccine, live 12/23/08 Given Ambulat ory Pharmac y influenza virus vaccine, live 2007 [id number] 111 MediStatSocialune Inc comple t ed influenza virus vaccine, live 11/20/07 Given Ambulat ory Pharmac y influenza virus vaccine, live 2006 [id number] 111 MedimmCHANNEL Inc comple t ed influenza virus vaccine, live 01/15/07 Given Ambulat ory Pharmac y influenza virus vaccine,split 2005 [id number] 15 sanofi pasteur complet ed influenza virus vaccine,s plit 01/02/06 Given Ambulat ory Pharmac y influenza virus vaccine,split 2004 [id number] 15 sanofi pasteur complet ed influenza virus vaccine,s plit 01/16/05 Given Ambulat ory Pharmac y tuberculin purified protein derivative 2002 [id number] 96 sanofi pasteur complet ed tuberculi n purified protein derivativ e 11/07/02 Given Ambulat ory Pharmac y influenza virus vaccine, whole virus 2002 [id number] 16 [employer] Technologies complet ed influenza virus vaccine, whole virus 11/07/02 Given Ambulat ory Pharmac y typhoid Vi capsular polysaccharid e vac 2002 [id number] 101 sanofi pasteur complet ed typhoid Vi capsular polysacch aride vac 10/28/02 Given Ambulat ory Pharmac y tetanus-dipht h toxoids (Td) adult/adol 2002 [id number] 09 sanofi pasteur complet ed tetanus-d iphth toxoids (Td) adult/ado l 10/28/02 Given Ambulat ory Pharmac y tuberculin purified protein derivative 2001 [id number] 96 sanofi pasteur complet ed tuberculi n purified protein derivativ e 12/08/01 Given Ambulat ory Pharmac y influenza virus vaccine, whole virus 2001 [id number] 16 sanofi pasteur complet ed influenza virus vaccine, whole virus 12/08/01 Given Ambulat ory Pharmac y tuberculin purified protein derivative 2000 [id number] 96 sanofi pasteur complet ed tuberculi n purified protein derivativ e 12/17/00 Given Ambulat ory Pharmac y influenza virus vaccine, whole virus 2000 [id number] 16 sanofi pasteur complet ed influenza virus vaccine, whole virus 12/17/00 Given Ambulat ory Pharmac y typhoid vaccine, parenteral 2000 [id number] 41 sanofi pasteur complet ed typhoid vaccine, parentera l 10/23/00 Given Ambulat ory Pharmac y tuberculin purified protein derivative 2000 [id number] 96 sanofi pasteur complet ed tuberculi n purified protein derivativ e 10/10/00 Given Ambulat ory Pharmac y measles/mumps /rubella virus vaccine 2000 [id number] Merck & Company Inc complet ed measles/m umps/rube lla virus vaccine 10/10/00 Given Ambulat ory Pharmac y influenza virus vaccine, whole virus 2000 [id number] 16 [facility] complet ed influenza virus vaccine, whole virus 03/20/00 Given Ambulat ory Pharmac y influenza virus vaccine, whole virus 1998 [id number] 16 sanofi pasteur complet ed influenza virus vaccine, whole virus 12/17/98 Given Ambulat ory Pharmac y tuberculin purified protein derivative 1998 2503-11 96 [facility] complet ed tuberculi n purified protein derivativ e 12/02/98 Given Ambulat ory Pharmac y influenza virus vaccine, whole virus 19973656 [id number] 16 [facility] complet ed influenza virus vaccine, whole virus 11/22/97 Given Ambulat ory Pharmac y influenza virus vaccine, whole virus 19964427 [id number] 16 PFIZER complet ed influenza virus vaccine, whole virus 12/11/96 Given Ambulat ory Pharmac y tuberculin purified protein derivative 1996 96 complet ed tuberculi n purified protein derivativ e 08/04/96 Given Ambulat ory Pharmac y hepatitis A adult vaccine 19964560 [id number] 52 PFIZER complet ed hepatitis A adult vaccine 07/31/96 Given Ambulat ory Pharmac y meningococcal polysaccharid e (MPSV4) 19967955 [id number] 32 PFIZER complet ed meningoco ccal polysacch aride (MPSV4) 07/31/96 Given Ambulat ory Pharmac y influenza virus vaccine, whole virus 1995 16 complet ed influenza virus vaccine, whole virus 12/16/95 Given Ambulat ory Pharmac y yellow fever vaccine 19955070 [id number] 37 PFIZER complet ed yellow fever vaccine 09/29/95 Given Ambulat ory Pharmac y hepatitis A adult vaccine 19955065 [id number] 52 PFIZER complet ed hepatitis A adult vaccine 09/21/95 Given Ambulat ory Pharmac y typhoid vaccine, live, oral 19952623 [id number] 25 PFIZER complet ed typhoid vaccine, live, [...] up to thelast 18 months, not all [place] non-surgical procedures are included; 2) All procedures from the Department of [facility] facilities. Procedure Procedure Type Code Date Perfomer Comments Sourc e No data available for this section Ambulatory P harmacy Social History Combined list of available smoking, tobacco, and other social history from Department of Defense and Veterans Affairs facilities. Social History Type Response Date Comment Sourc e Tobacco smoking status NHIS VA-TOBACCO USER SOME DAYS 09/04/2021 [place] [facility] [facility] History of tobacco use VA-TOBACCO DOESNT USE WI 30 MIN WAKEUP 09/04/2021 [place] [facility] [facility] Assessment and Plan Combined list of future care activities from Department of Defense and Veterans Affairs facilities (e.g., assessment and plan notes, appointments, orders, and referrals). Additional future care activities may be listed in the Plan of Care section. Result Assessment and Plan Date Source Assessment and Plan No data available for this section 05/17/2024 Ambulatory Pharmacy Functional Status Combined list of recent functional and cognitive assessments recorded at Department of Defense and Veterans Affairs ([place]VA Functional [place] Measurement (FIM) Scale: 1 = Total Assistance (Subject = 0% +), 2 = Maximal Assistance (Subject = 25% +), 3 = Moderate Assistance (Subject = 50% +), 4 = Minimal Assistance (Subject = 75% +), 5 = Supervision, 6 = Modified [place] (Device), 7 = Complete [place] (Timely, Safely). Assessment Date/Time Source Assessment Type Assessment Skill Assessment Score Assessment Details No data available for this section
[2024-05-17 10:18] LABS: MANUAL DIFF FLAG NO
[2024-05-17 10:23] LABS: Basophils Absolute Auto 0.1 X10*3/uL (0.0-0.2); Basophils Percent Auto 0.7 % (0-2); Eosinophils Absolute Auto 0.4 X10*3/uL (0.0-0.4); Eosinophils Percent Auto 4.4 % (0-4); Hematocrit 48.3 % (42.0-52.0); Hemoglobin 16.6 g/dl (14.0-18.0); Imm Gran Abs Auto 0.03 X10*3/uL (0.00-0.03); Imm Gran Pct Auto 0.4 % (0.0-0.4); Lymphocytes Absolute Auto 3.1 X10*3/uL (1.2-4.9); Lymphocytes Percent Auto 36.5 % (20-40); Mean Corpuscular HGB Conc 34.4 g/dl (31.0-36.0); Mean Corpuscular Hemoglobin 28.5 pg (27.0-33.0); Mean Platelet Volume 10.2 fL (9.4-12.4); Monocytes Absolute Auto 0.9 X10*3/uL (0.1-1.2); Monocytes Percent Auto 10.2 % (2-11); Neutrophils Absolute Auto 4.1 x10*3/uL (2.0-8.3); Neutrophils Percent Auto 47.8 % (45-73); Platelet Count 299 X10*3/uL (160-400); Red Blood Count 5.82 X10*6/uL (4.60-5.80); Red Cell Distribution Width 13.2 % (11.0-16.0); White Blood Count 8.6 X10*3/uL (4.8-10.8)
[2024-05-17 11:24] LABS: Alanine Aminotransferase 34 U/L (0-40); Anion Gap 13 (12-20); Aspartate Amino Transferase 33 U/L (5-37); Blood Urea Nitrogen 18 mg/dL (9-16); Calcium 10.3 mg/dL (8.4-10.2); Carbon Dioxide 27 mmol/L (22-29); Chloride 105 mmol/L (96-108); Cholesterol 171 mg/dL (<200); Estimated Glomerular Filt Rate > 60; Glucose Fasting 97 mg/dL (60-99); HDL Cholesterol 55 mg/dL (>40); LDL Cholesterol Calculated 106 mg/dL (<100); Potassium 4.9 mmol/L (3.3-5.1); Sodium 140 mmol/L (135-145); Triglycerides 53 mg/dL (<150)
[2024-05-17 11:42] LABS: TSH reflex Free T4 1.48 uIU/mL (0.32-4.0); Vitamin D 25-OH Total 78.4 ng/mL (>30)
[2024-05-22 17:54] LABS: Testosterone, Free 109.2 pg/mL (35.0-155.0); Testosterone, Total 837 ng/dL (250-1100)
== END 2024-05-17 06:02 | disposition home or self-care (01) ==
LOC: HO.HMGCLDS 06:01
PROVIDERS: PCP Internal Medicine; Visit Provider Internal Medicine
DX: Z00.01 Encounter for general adult medical examination with abnormal findings (principal); E66.9 Obesity, unspecified; I10 Essential (primary) hypertension; Z13.220 Encounter for screening for lipoid disorders; Z13.1 Encounter for screening for diabetes mellitus; N52.9 Male erectile dysfunction, unspecified
CPT/HCPCS: 36415; 80048; 80061; 82306; 84402; 84403; 84443; 84450; 84460; 85025

== ENCOUNTER 2024-11-16 08:28 | Outpatient (REF) | payer OTHER, SELFPAY ==
[2024-11-16 14:01] LABS: Alanine Aminotransferase 29 U/L (0-40); Anion Gap 14 (12-20); Aspartate Amino Transferase 29 U/L (5-37); Blood Urea Nitrogen 13 mg/dL (9-16); Calcium 10.0 mg/dL (8.4-10.2); Carbon Dioxide 28 mmol/L (22-29); Chloride 103 mmol/L (96-108); Cholesterol 203 mg/dL (<200); Estimated Glomerular Filt Rate > 60; HDL Cholesterol 55 mg/dL (>40); Potassium 4.5 mmol/L (3.3-5.1); Sodium 140 mmol/L (135-145); Triglycerides 112 mg/dL (<150)
== END 2024-11-16 08:29 | disposition home or self-care (01) ==
LOC: HO.HMGCLDS 08:28
PROVIDERS: PCP Internal Medicine; Visit Provider Internal Medicine
DX: I10 Essential (primary) hypertension (principal); E66.9 Obesity, unspecified; Z68.30 Body mass index [BMI] 30.0-30.9, adult; Z87.891 Personal history of nicotine dependence; Z71.3 Dietary counseling and surveillance
CPT/HCPCS: 36415; 80048; 80061; 84450; 84460; 99212

== ENCOUNTER 2024-11-16 08:28 | Outpatient (AMB) | payer OTHER, SELFPAY ==
--- OUTSIDE RECORDS SUMMARY | 2024-08-30 11:00 | XMS_ITS ---
Author Organization [facility] Address [address] [place] [id number] Care Team Providers Care Apartment Hotel Manager Name Role Phone Mahnaz BURNETTE, Rebecca Primary Care Provider [place] [phone] REASON FOR VISIT Patient presents today for a colon screening Encounters Encounter Location Date Provider Diagnosis [facility] [address] [place] [id number] 08/30/2024 [place] Plan Of Treatment Next Appt Details Provider Name:[place] , 12/20/2024 02:00:00 PM, [address], [address], [place], [address], Progress Notes * FAN DEALDOB: [birth year] (49 yo M)Acc No.[id number]:08/30/2024 Progress Notes Patient: FAN AVALOS Provider: Sena Olson MD :1975 A ge:48 Y S ex:Male Date:08/30/2024 Address:[address] [place] [address] Pcp:Rebecca Joya MD Subjective: * Chief Complaints: * 1 . Patient presents today for a colon screening. * Medical History: Objective: * Vitals: Assessment: Plan: * Treatment: * * The named appointment provid er may or may not be the originator of this progress note, and it is not deemed complete until electronically signed by the appointment provider. Sign off status: Pending * Provider: Sena Olson MD Date: 0 08/30/2024 Generated for Hussaini ng/Faargenisg/eTransmitting on: 1 08:45 AM EDT
--- OUTSIDE RECORDS SUMMARY | 2024-11-16 08:46 | XMS_ITS | Patient Health Record ---
Author Organization [facility] Address [address] [place] [address] Care Team Providers Care Truck Spotter Name Role Phone Mahnaz BURNETTE, Rebecca Primary Care Provider Lake Johnson Unavailable [phone] Reason For Referral Referring Provider First Name Rebecca Referring Provider Last Name Mahnaz Referring Provider Speciality Internal M edicine Referred Organization [facility] Referred Provider Lake Olson Referred Address [address] [place] [address], [address],[place], [place],[address], Referred Provider Specialty Gastroentero logy General Notes Fatoumata Merida 2024 01:18:29 PM >requested referral from Dr. Joya' but the patient has another pcp listed so we can not obtain a referral unless he changes his pcp, Fatoumata Merida 08/02/2024 02:30:32 PM >per Nini,no referral requird since pt is prime...[place]. Referral Priority Routine Encounters Encounter Location Date Provider Diagnosis [facility] [address] [place] [address] [address] [place] [address] 07/27/2024 Lake Olson Plan Of Treatment Next Appt Details Provider Name:Lake Olson , 12/20/2024 02:00:00 PM, [address], [address], [place], [address], Insurance Providers Payer Name Payer Address Payer Phone Subscriber Number Group Number Insured Name Patient Relationship to Insured Coverage Start Date Coverage End Date [facility] [place] Attn Claims [address] [place] [address] [id number] [employer]AN [employer] Self - patient is the insured
[2024-11-16 09:16] VITALS: BP 116/80; PULSE 63; RESP 16; TEMP 36.8; O2SAT 98; BMI 30.9
--- NOTE | 2024-11-16 09:16 | MHC.PC.OV ---
Vital Signs 11/16/24 09:16 Height 6 ft Weight 228 lb BMI 30.9 BP 116/80 Blood Pressure Location Rt brachial Position Sitting Respiration 16 Pulse 63 Pulse Source Pulse Oximeter Temp 98.3 F Temp Source Oral Pulse Oximetry (%) 98 Oxygen Delivery Method Room Air Intake Visit Reasons: Reschedule 4m follow-up Intake Note: Pt is here today to f/u HTN and weigh in Allergies penicillin V Allergy (Unknown, Verified 11/16/24 09:44) unknown Sulfa (Sulfonamide Antibiotics) Allergy (Unknown, Verified 11/16/24 09:44) unknown Medication List - Last Reconciled 11/16/24 by Rebecca Joya MD amlodipine 10 mg PO DAILY 90 days blood pressure monitor (Blood Pressure Kit) Check blood pressure once a day as directed lisinopril-hydrochlorothiazide 10-12.5 mg 1 tab PO DAILY semaglutide (weight loss) (Wegovy) 0.25 mg (0.5 mL) subcut QWEEK 30 days sildenafil (Viagra) 100 mg PO DAILY PRN Tobacco use date assessed: 11/16/24 Dental Screening Dental Screen Date: 11/16/24 Did you have a dental visit in the last 12 months?: No Did you have a dental problem in the last 6 months where you did not have access to dental care?: No Was dental information given to patient?: Patient declined HPI Reschedule 4m follow-up HPI Details 49-year-old male with hypertension, obesity, and history of erectile dysfunction, here today for his follow-up visit. His hypertension, is currently well-controlled with current treatment with amlodipine 10 mg daily and lisinopril HCTZ 10-12.5 mg once a day, in addition to adherence with healthy eating habits. The patient is currently on Wegovy, for help with weight loss and reports a weight reduction from 264 pounds to approximately 228 pounds, but is weight loss has currently plateaued over the last three months. He has been actively engaging in physical activity, getting 10,000 to 15,000 steps daily, and has adjusted his diet to smaller portions, aided by the appetite-suppressing effects of Wegovy. The patient reports no side effects from Wegovy and has been abstinent from alcohol for two and a half years. Preventative care measures were discussed, including colon cancer screening with a Cologuard test, which the patient agreed to do. The patient is up to date with vaccinations, including flu and COVID-19 vaccines [facility] Medical History Erectile dysfunction Shoulder pain, right History of alcohol abuse Obesity (BMI 30.0-34.9) Essential hypertension H/O fracture of femur Surgical History History of skin graft Family History Father Aneurysm Mother Chronic back pain Sister No problems noted. Sister No problems noted. Son No problems noted. Son No problems noted. Social History Housing: House Alcohol intake: current Patient Tobacco Use Status: Former Tobacco user e-Cigarette/Vaping Use: Former Use service: No Current occupational status: employed Cognitive needs: No Hearing needs: No Vision needs: Yes Questionnaire PHQ-9 Over the last 2 weeks, how often have you been bothered by any of the following problems? 1. Little interest or pleasure in doing things: not at all 2. Feeling down, depressed, or hopeless: not at all 3. Trouble falling or staying asleep, or sleeping too much: not at all 4. Feeling tired or having little energy: not at all 5. Poor appetite or overeating: not at all 6. Feeling bad about yourself - or that you are a failure or have let yourself or your family down: not at all 7. Trouble concentrating on things, such as reading the newspaper or watching television: not at all 8. Moving or speaking so slowly that other people could have noticed. Or the opposite - being so fidgety or restless that you have been moving around a lot more than usual: not at all 9. Thoughts that you would be better off or of hurting yourself in some way: not at all Total score: 0 Depression Screening Interpretation: Negative Depression Screening Done: Yes Source: Developed by Drs. Lake Thomas, Claudette Allen, Jamal Graf and colleagues, with an educational charleen from [employer]. Thrive Questionnaire Date Thrive assessed: 05/11/24 I am a: Patient What is your living situation today?: I have a steady place to live Within the past 12 months, did the food you bought not last and you didn't have the money to get more?: Never true Within the past 12 months, did you worry whether your food would run out before you got money to buy more?: Never true Do you have trouble paying for medicines?: No Do you have trouble getting transportation to medical appointments?: No Do you have trouble paying your heating and electricity bill?: No Do you have trouble taking care of your child, family member or friend?: No Do you have trouble with day-to-day activities such as bathing, preparing meals, shopping, managing finances, etc.?: No Are you currently unemployed and looking for a job?: No Are you interested in more education?: No Please select the resources that you would like help with: None Currently or been in a relationship where the following occur: No concerns reported THRIVE Score: 0 AUDIT C Alcohol Use Questionnaire (AUDIT-C) 1. How often do you have a drink containing alcohol?: Never 3. How often do you have six or more drinks on one occasion?: Never Total Score: 0 PASQUALE-7 AMB Questionnaire PASQUALE-7 Date PASQUALE - 7 assessed: 05/11/24 Feeling nervous, anxious, or on edge: 0 = Not at all Not being able to stop or control worryin = Not at all Worrying too much about different things: 0 = Not at all Trouble relaxin = Not at all Being so restless that it is hard to sit still: 0 = Not at all Becoming easily annoyed or irritable: 0 = Not at all Feeling afraid as if something awful might happen: 0 = Not at all Total PASQUALE-7 score (0-4 normal; 5-9 mild; 10-14 moderate; 15-21 severe): 0 Source: Developed by Drs. Lake Thomas, Claudette Allen, Jamal Graf and colleagues, with an educational charleen from [employer]. Review of Systems Const Denies body aches, Denies fatigue, Denies fever(s), Denies headache(s) and Denies weakness Eyes Denies change in vision ENT Denies dizziness, Denies headache(s), Denies nasal congestion and Denies nasal discharge Card Denies chest pain, Denies lightheadedness, Denies palpitations and Denies dyspnea Resp Denies chest congestion, Denies cough, Denies dyspnea and Denies wheezing GI Denies abdominal pain, Denies change in bowel habits and Denies heartburn Denies dysuria, Denies urinary frequency and Denies urinary urgency Musc Denies back pain, Denies myalgias, Denies joint swelling, Denies muscle weakness and Denies numbness Skin/Breast Denies lesions and Denies rash Neuro Denies dizziness, Denies headache(s), Denies numbness and Denies weakness Psych Denies abnormal sleep pattern, Denies anxiety and Denies depression Endo Denies fatigue, Denies polydipsia, Denies polyuria and Denies palpitations Johnathan/Lymph Denies easy bruising Aller/Immun Denies seasonal rhinorrhea and Denies wheezing Physical exam (Primary Care) Vital Signs: Last Vital Signs Temp 98.3 F 11/16/24 09:16 Pulse 63 11/16/24 09:16 Resp 16 11/16/24 09:16 BP 116/80 11/16/24 09:16 Pulse Ox 98 11/16/24 09:16 Oxygen Delivery Method Room Air 11/16/24 09:16 BMI result Body Mass Index 30.9 Tobacco/Smoking Status: Tobacco use Status Tobacco use date assessed 11/16/24 11/16/24 09:30 Patient Tobacco Use Status Former Tobacco user 11/16/24 09:17 e-Cigarette/Vaping Use Former Use 11/16/24 09:17 PHQ-9: PHQ-9 Score PHQ-9: Total score 0 11/20/24 08:37 Depression Screening Interpretation: Negative Thrive Assessment: Date of Thrive Assessment Date Thrive assessed 05/11/24 11/16/24 09:17 Currently or been in a relationship where the following occur: No concerns reported Const General: no acute distress and alert Orientation/consciousness: patient oriented x3 HENMT Head: Yes normocephalic Ears: external ears normal, TM's normal bilaterally and EAC's normal General nose exam: Normal external nose present Face and sinus: Yes face symmetric Mouth: Normal oral and palatal mucosa present, tongue normal and moist mucous membranes Neck Neck: Yes full ROM, Yes no lymphadenopathy and Yes supple Thyroid: Thyroid normal Chest Chest palpation & inspection: normal inspection of the chest Resp Effort & Inspection: normal respiratory effort and able to speak in complete sentences Auscultation: clear to auscultation bilaterally Cardio Rate: regular rate Rhythm: regular rhythm Heart sounds: S1 normal heart sound present and S2 normal heart sound present GI Palpation (GI): Soft to palpation, nontender, no guarding and no masses Auscultation: normal bowel sounds General: Yes no CVA tenderness Back/Spine/Pelvis Back: no CVA tenderness and No back tenderness Skin General skin exam: no rashes or lesions noted Neuro General: patient oriented x3, gait normal, moves all extremities, no focal motor deficits and CN's II-XI intact bilaterally Cognition (Neuro): normal cognition Gait exam (Neuro): Normal gait present Motor exam (neuro): 5/5 motor strength present throughout Extrem General: Yes normal to inspection, Yes full ROM, Yes no joint enlargement, Yes no pedal edema and Yes normal gait Psych Appearance: grossly normal and well kempt Mental Status: mental status grossly normal Speech and movement: Normal speech and movement present Affect: normal affect Coding Level of Care Code Est Pt Level 4 (90611) Complex EM visit Add On G2211 Diagnoses Essential hypertension I10 Obesity (BMI 30.0-34.9) E66.9 Encounter for screening for malignant neoplasm of colon Z12.11 Assessment & Plan Assessment & Plan (1) Essential hypertension: Code(s): I10 - Essential (primary) hypertension Category: Medical Plan: Blood pressure at goal of less than 130/80. Continue with current medication. Reinforced importance of following a low sodium diet, getting regular exercise, and lowering stress levels. (2) Obesity (BMI 30.0-34.9): Code(s): E66.9 - Obesity, unspecified Category: Medical Plan: Continued on semaglutide but dose increased to .5 mg injected subcutaneously once a week. Continue combining this with adherence to healthy eating habits and regular exercise. (3) Encounter for screening for malignant neoplasm of colon: Code(s): Z12.11 - Encounter for screening for malignant neoplasm of colon Plan: Cologuard test kit ordered Orders: Orders Alanine Aminotransferase 11/16/24 E66.9 - Obesity, unspecified, I10 - Essential (primary) hypertension Aspartate Amino Transferase 11/16/24 E66.9 - Obesity, unspecified, I10 - Essential (primary) hypertension Basic Metabolic Panel 11/16/24 E66.9 - Obesity, unspecified, I10 - Essential (primary) hypertension Lipid Panel 11/16/24 E66.9 - Obesity, unspecified, I10 - Essential (primary) hypertension Referrals Cologuard Test Z12.11 - Encounter for screening for malignant neoplasm of colon, Z12.12 - Encounter for screening for malignant neoplasm of rectum Medications: Changed From semaglutide (weight loss) 0.25 mg (0.5 mL) subcut QWEEK 30 days 2.5 mL 3RF E66.9 - Obesity, unspecified, I10 - Essential (primary) hypertension To semaglutide (weight loss) 0.5 mg (0.5 mL) subcut QWEEK 2 mL 3RF 30 days E66.9 - Obesity, unspecified, I10 - Essential (primary) hypertension Refilled amlodipine 10 mg PO DAILY 90 tabs 3RF 90 days I10 - Essential (primary) hypertension lisinopril-hydrochlorothiazide 10-12.5 mg 1 tab PO DAILY 90 tabs 3RF
== END 2024-11-16 09:59 | disposition home or self-care (01) ==
LOC: HO.HMCC 08:29
PROVIDERS: PCP Internal Medicine; Visit Provider Internal Medicine
DX: I10 Essential (primary) hypertension (principal); E66.9 Obesity, unspecified; Z12.11 Encounter for screening for malignant neoplasm of colon; Z68.30 Body mass index [BMI] 30.0-30.9, adult